=== PATIENT | male | born 1970 | race African-American/Black ===

== ENCOUNTER 2016-10-06 07:26 | Emergency (ER) | payer OTHER ==
[~2016-10-06] VITALS: Ht 177.8 cm; Wt 86.2 kg
[~2016-10-06 07:26] MED LIST: BACTRIM DS TAB1 EACH PO; HYDROCODONE-AP1 EAC6 PO; IBUPROFEN 800800 MG PO; KEFLEX500 MG PO
[2016-10-06] MEDS ORDERED: MOBIC15 MG PO (07:57)
[2016-10-06 08:06] VITALS: BP 139/85
== END 2016-10-06 08:02 | disposition home or self-care (01) ==
LOC: ER 07:26
DX: M70.872 Other soft tissue disorders related to use, overuse and pressure, left ankle and foot (principal); M70.871 Other soft tissue disorders related to use, overuse and pressure, right ankle and foot; F10.99 Alcohol use, unspecified with unspecified alcohol-induced disorder; Y93.89 Activity, other specified

== ENCOUNTER 2017-02-27 14:48 | Emergency (ER) | payer BC ==
[~2017-02-27] VITALS: Ht 175.3 cm; Wt 97.5 kg
[~2017-02-27 14:48] MED LIST changes: +MOBIC15 MG PO
[2017-02-27 15:36] LABS: HEMATOCRIT 42.2 % (42.0-52.0); HEMOGLOBIN 14.2 gm/dL (14.0-18.0); MCHC 33.7 g/dL (28.0-37.0); MCV 100.8 fL (80.0-100.0); PLATELET COUNT 302 thou/uL (150-400); RBC 4.18 mil/uL (4.50-6.00); WBC 11.6 thou/uL (4.0-11.0)
[2017-02-27 15:41] LABS: MANUAL DIFF YES
[2017-02-27 15:46] LABS: CALCIUM 9.2 mg/dL (8.5-10.1); POTASSIUM 3.9 mmol/L (3.5-5.1)
[2017-02-27 15:50] LABS: ALBUMIN 3.6 g/dL (3.4-5.0); TOTAL BILIRUBIN 0.7 mg/dL (<0.1-1.0); TOTAL PROTEIN 8.7 g/dL (6.4-8.2)
[2017-02-27 16:09] LABS: ABSOLUTE NEUTROPHILS 10.7 thou/uL (1.4-8.2); ANISOCYTOSIS 1+; MACROCYTES 1+; POLYCHROMASIA OCCASIONAL; TOTAL CELL COUNT 100
[2017-02-27 16:35] LABS: URINE BILIRUBIN NEGATIVE (Negative); URINE BLOOD NEGATIVE (Negative); URINE COLOR YELLOW; URINE GLUCOSE-RANDOM* NEGATIVE (Negative); URINE KETONES 1+ (Negative); URINE NITRITE NEGATIVE (Negative); URINE PROTEIN (DIPSTICK) 1+ (Negative); URINE UROBILINOGEN 0.2 E.U./dl (0.2-1.0)
[2017-02-27 16:43] LABS: BACTERIA 1-9 Few /HPF (None Seen); CASTS None Seen /LPF (None Seen); CRYSTALS None Seen /LPF (None Seen); SQUAMOUS 0-3 Few /LPF (0-3); URINE RBC 0-2 Rare /HPF (0-2); URINE WBC 0-5 Rare /HPF (0-5)
[2017-02-27] MEDS ORDERED: PHENERGAN 25 MG25 M1 PO (17:22)
[2017-02-27] MEDS ORDERED: HYDROCODONE-AP1 EAC6 PO (17:22)
[2017-02-27 17:59] VITALS: BP 171/84
== END 2017-02-27 18:00 | disposition home or self-care (01) ==
LOC: ER 14:48
PROVIDERS: Physician Assistant
DX: R10.84 Generalized abdominal pain (principal); R19.7 Diarrhea, unspecified; R11.2 Nausea with vomiting, unspecified

== ENCOUNTER 2017-08-10 03:12 | Emergency (ER) | payer BC, OTHER ==
[~2017-08-10] VITALS: Ht 180.3 cm; Wt 90.7 kg
[~2017-08-10 03:12] MED LIST changes: +PHENERGAN 25 MG25 M1 PO
[2017-08-10] MEDS ORDERED: TYLENOL325 MG PO (03:26)
[2017-08-10 03:45] LABS: ABSOLUTE NEUTROPHILS 9.1 thou/uL (1.4-8.2); BASOPHILS 0.3 % (0.0-2.0); EOSINOPHILS 0.1 % (0.0-3.0); HEMATOCRIT 37.5 % (42.0-52.0); HEMOGLOBIN 13.1 gm/dL (14.0-18.0); LYMPHOCYTES 4.9 % (24.0-44.0); MCH 34.2 pg (26.0-34.0); MCV 97.7 fL (80.0-100.0); MONOCYTES 8.1 % (1.0-8.0); PLATELET COUNT 401 thou/uL (150-400); POLYS 86.6 % (36.0-66.0); RBC 3.84 mil/uL (4.50-6.00); WBC 10.6 thou/uL (4.0-11.0)
[2017-08-10 03:50] LABS: CALCIUM 9.5 mg/dL (8.5-10.1); CREATININE 0.9 mg/dL (0.7-1.3); POTASSIUM 3.3 mmol/L (3.5-5.1)
[2017-08-10 03:56] LABS: ALBUMIN 3.5 g/dL (3.4-5.0); TOTAL BILIRUBIN 0.7 mg/dL (<0.1-1.0); TOTAL PROTEIN 9.2 g/dL (6.4-8.2)
[2017-08-10] MEDS ORDERED: ONDANSETRON HCL4 M2 PO (04:10)
[2017-08-10 04:39] VITALS: BP 125/71
== END 2017-08-10 04:40 | disposition home or self-care (01) ==
LOC: ER 03:12
PROVIDERS: Emergency Medicine
DX: R10.33 Periumbilical pain (principal); R11.2 Nausea with vomiting, unspecified

== ENCOUNTER 2018-03-15 18:53 | Emergency (ER) | payer BC, OTHER ==
[~2018-03-15] VITALS: Ht 175.3 cm; Wt 90.7 kg
[~2018-03-15 18:53] MED LIST changes: +ONDANSETRON HCL4 M2 PO; +TYLENOL325 MG PO
[2018-03-15] MEDS ORDERED: IBUPROFEN 800800 M1 PO (19:02)
[2018-03-15 19:23] LABS: HEMATOCRIT 32.9 % (42.0-52.0); HEMOGLOBIN 11.4 gm/dL (14.0-18.0); MCH 32.7 pg (26.0-34.0); MCHC 34.6 g/dL (28.0-37.0); MCV 94.6 fL (80.0-100.0); PLATELET COUNT 286 thou/uL (150-400); RBC 3.47 mil/uL (4.50-6.00); RDW 16.5 % (10.5-14.5); WBC 5.5 thou/uL (4.0-11.0)
[2018-03-15 19:31] LABS: CALCIUM 9.5 mg/dL (8.5-10.1); CREATININE 1.2 mg/dL (0.7-1.3); POTASSIUM 3.6 mmol/L (3.5-5.1)
[2018-03-15 19:37] LABS: ALBUMIN 3.1 g/dL (3.4-5.0); TOTAL BILIRUBIN 1.4 mg/dL (<0.1-1.0)
[2018-03-15] MEDS ORDERED: PHENERGAN 25 MG25 M1 PO (20:17)
[2018-03-15 20:37] VITALS: BP 117/68
== END 2018-03-15 20:38 | disposition home or self-care (01) ==
LOC: ER 18:53
PROVIDERS: Physician Assistant
DX: E86.0 Dehydration (principal); F17.210 Nicotine dependence, cigarettes, uncomplicated